=== PATIENT | female | born 1950 | race Caucasian/White ===

== ENCOUNTER 2022-10-09 20:53 | Emergency (ER) | payer OTHER ==
[2022-10-09 21:54] LABS: CORONAVIRUS COVID-19 NAA NEGATIVE (NEGATIVE); RESPIRATORY SYNCYTIAL VIR NAA NEGATIVE (NEGATIVE)
[2022-10-09 21:57] LABS: ANION GAP 5.5 meq/L (7-15); CHLORIDE,CL 104 mmol/L (98-107); SODIUM,NA 140 mmol/L (136-145)
[2022-10-09 21:58] LABS: ESTIMATED GFR 77 mL/min (>=60)
[2022-10-09] MEDS ORDERED: Meclizine 25 MG Tab PO ONE (22:25)
[2022-10-09] MEDS ORDERED: Ondansetron 4 MG Tab.DIS PO ONE (22:25)
== END 2022-10-09 23:15 | disposition home or self-care (01) ==
LOC: LL.ED 20:53
DX: B34.9 Viral infection, unspecified (principal); E11.40 Type 2 diabetes mellitus with diabetic neuropathy, unspecified; Z79.4 Long term (current) use of insulin; Z79.01 Long term (current) use of anticoagulants; Z88.5 Allergy status to narcotic agent; Z88.0 Allergy status to penicillin; Z20.822 Contact with and (suspected) exposure to COVID-19
CPT/HCPCS: 0241U; 36415; 80053; 81003; 82947; 83735; 85025; 87081; 87430; 99283; 99284; A9270-GY